=== PATIENT | female | born 1955 | race Hispanic/Latino ===

== ENCOUNTER → 2024-05-09 | Outpatient (REF) | payer MEDICARE | LOC: MAMMO 08:17 | PROVIDERS: ATTEND Internal Medicine | DX: Z12.31 Encounter for screening mammogram for malignant neoplasm of breast (principal) | CPT/HCPCS: 77067 ==

== ENCOUNTER 2024-08-26 20:21 | Emergency (ER) | payer MEDICARE, MEDICAID ==
[~2024-08-26] VITALS: Ht 152.4 cm; Wt 73.9 kg
[2024-08-26 20:30] VITALS: TEMP 98.4
[2024-08-26 23:45] VITALS: PULSE 67; RESP 16
[2024-08-27 00:05] VITALS: BP 119/74; O2SAT 97
== END 2024-08-26 23:55 | disposition home or self-care (01) ==
LOC: ER 21:01
DX: S00.83XA Contusion of other part of head, initial encounter (principal); S00.81XA Abrasion of other part of head, initial encounter; M54.2 Cervicalgia; W01.0XXA Fall on same level from slipping, tripping and stumbling without subsequent striking against object, initial encounter; Y93.01 Activity, walking, marching and hiking; Y92.89 Other specified places as the place of occurrence of the external cause; I10 Essential (primary) hypertension; E11.9 Type 2 diabetes mellitus without complications; E78.5 Hyperlipidemia, unspecified; K21.9 Gastro-esophageal reflux disease without esophagitis; J45.909 Unspecified asthma, uncomplicated
CPT/HCPCS: 70450; 70486; 72125; 99283